=== PATIENT | female | born 2000 | race Caucasian/White ===

== ENCOUNTER 2020-04-27 15:50 | Inpatient (IN) | payer OTHER ==
[~2020-04-27] VITALS: Ht 154.9 cm; Wt 81.2 kg
[2020-04-27 16:49] LABS: HEMOGLOBIN 9.4 gm/dl (12.3-15.3); RED BLOOD COUNT 3.64 M/UL (4.00-5.10); WHITE BLOOD COUNT 11.2 K/UL (4.5-11.0)
[2020-04-28] MEDS ORDERED: LEVOTHYROXINE25 MCG PO (01:00)
[2020-04-28] MEDS ORDERED: IBUPROFEN600 MG PO (22:20)
[2020-04-28] MEDS ORDERED: COLACE 100MG C100 MG PO (22:20)
[2020-04-29 06:57] LABS: HEMOGLOBIN 9.3 gm/dl (12.3-15.3)
== END 2020-04-30 15:48 | disposition home or self-care (01) | DRG 807 ==
LOC: GENOP 15:50 → OB 16:29
PROVIDERS: Obstetrics & Gynecology; ADMIT Obstetrics & Gynecology
PROC: 4A1HX4Z Monitoring of Products of Conception, Cardiac Electrical Activity, External Approach (ICD-10-PCS; principal; 2020-04-27)
PROC: 0U7C7ZZ Dilation of Cervix, Via Natural or Artificial Opening (ICD-10-PCS; 2020-04-27)
PROC: 10E0XZZ Delivery of Products of Conception, External Approach (ICD-10-PCS; 2020-04-28)
PROC: 0KQM0ZZ Repair Perineum Muscle, Open Approach (ICD-10-PCS; 2020-04-28)
PROC: 10907ZC Drainage of Amniotic Fluid, Therapeutic from Products of Conception, Via Natural or Artificial Opening (ICD-10-PCS; 2020-04-28)
DX: O99.284 Endocrine, nutritional and metabolic diseases complicating childbirth (principal); Z37.0 Single live birth; E03.9 Hypothyroidism, unspecified; Z3A.39 39 weeks gestation of pregnancy; O70.1 Second degree perineal laceration during delivery; Z90.49 Acquired absence of other specified parts of digestive tract; Z20.822 Contact with and (suspected) exposure to COVID-19
CPT/HCPCS: 36415; 51702; 81001; 85014; 85018; 85025; 86900; 86901; 90471; 90715; J2590; J2795; J7120

== ENCOUNTER 2020-05-08 19:30 | Emergency (ER) | payer OTHER ==
[~2020-05-08 19:30] MED LIST: COLACE 100MG C100 MG PO; IBUPROFEN600 MG PO; LEVOTHYROXINE25 MCG PO
[2020-05-08 22:47] LABS: HEMOGLOBIN 11.4 gm/dl (12.3-15.3); RED BLOOD COUNT 4.44 M/UL (4.00-5.10); WHITE BLOOD COUNT 9.8 K/UL (4.5-11.0)
[2020-05-08 23:08] LABS: BUN/CREATININE RATIO 25 (0-10)
== END 2020-05-09 | disposition home or self-care (01) ==
LOC: ER1 19:30
PROVIDERS: Physician Assistant
DX: O72.1 Other immediate postpartum hemorrhage (principal)
CPT/HCPCS: 80053; 85025; 99284

== ENCOUNTER 2021-07-10 17:26 | Emergency (ER) | payer OTHER ==
[2021-07-10 18:25] LABS: HEMOGLOBIN 12.5 gm/dl (12.3-15.3); RED BLOOD COUNT 4.56 M/UL (4.00-5.10); WHITE BLOOD COUNT 7.7 K/UL (4.5-11.0)
[2021-07-10 18:41] LABS: BUN/CREATININE RATIO 24 (0-10)
[2021-07-10] MEDS ORDERED: ZOFRAN 4 MG TAB4 MG PO (20:49)
[2021-07-10] MEDS ORDERED: CEFUROXIME500 MG PO (20:49)
== END 2021-07-10 21:04 | disposition home or self-care (01) ==
LOC: ER1 17:26
PROVIDERS: Emergency Medicine
DX: N39.0 Urinary tract infection, site not specified (principal)
CPT/HCPCS: 80053; 81001; 83690; 84703; 85025; 85652; 86140; 96361; 96374; 96375; 99284; C9113; J2405; J7030; Q9967

== ENCOUNTER 2021-08-24 16:42 | Emergency (ER) | payer OTHER ==
[~2021-08-24 16:42] MED LIST changes: +CEFUROXIME500 MG PO; +ZOFRAN 4 MG TAB4 MG PO
[2021-08-24 17:14] LABS: HEMOGLOBIN 12.4 gm/dl (12.3-15.3); RED BLOOD COUNT 4.44 M/UL (4.00-5.10); WHITE BLOOD COUNT 7.6 K/UL (4.5-11.0)
[2021-08-24 17:41] LABS: BUN/CREATININE RATIO 18 (0-10)
[2021-08-24] MEDS ORDERED: CEPHALEXIN500 M1 PO (21:35)
== END 2021-08-24 22:22 | disposition home or self-care (01) ==
LOC: ER1 16:42
PROVIDERS: Physician Assistant Medical
DX: N30.00 Acute cystitis without hematuria (principal)
CPT/HCPCS: 80053; 81001; 83690; 84703; 85025; 96374; 96375; 99284; J1885; J2405